=== PATIENT | female | born 1995 | race Caucasian/White ===

== ENCOUNTER 2020-05-20 12:05 | Emergency (ER) | payer SELFPAY ==
[~2020-05-20] VITALS: Ht 172.7 cm; Wt 52.3 kg
[2020-05-20 13:30] LABS: BASO % 1 % (0-3); EOS % 0 % (0-3); HEMATOCRIT 33.4 % (36.0-47.0); HEMOGLOBIN 10.8 g/dL (12.0-15.5); LYMPH # 1.1 x10^3/uL (1.0-4.8); LYMPH % 25 % (24-48); MEAN CORPUSCULAR HEMOGLOBIN 23 pg (25-35); MEAN CORPUSCULAR HGB CONC 32 g/dL (31-37); MEAN CORPUSCULAR VOLUME 71 fL (79-100); MONO # 0.5 x10^3/uL (0.0-1.1); MONO % 11 % (0-9); NEUT # 2.9 x10^3/uL (1.8-7.7); NEUT % 63 % (31-73); PLATELET COUNT 321 x10^3/uL (140-400); RED BLOOD COUNT 4.72 x10^6/uL (3.50-5.40); RED CELL DISTRIBUTION WIDTH 20.1 % (11.5-14.5); WHITE BLOOD COUNT 4.6 x10^3/uL (4.0-11.0)
[2020-05-20 13:34] LABS: CALCIUM 8.7 mg/dL (8.5-10.1); CREATININE 0.8 mg/dL (0.6-1.0); GFR 88.9; POTASSIUM 3.6 mmol/L (3.5-5.1)
--- NOTE | 2020-05-20 13:39 | PHYS DOC ---
Past Medical History Past Medical History: No Pertinent History, Unknown Past Surgical History: Other Additional Past Surgical Histo: Smoking Status: Current Every Day Smoker Alcohol Use: Occasionally General Adult EDM: Chief Complaint: LOWER EXT PAIN HPI: HPI: Patient is a 24 year old female presents with multiple complaints. Patient complains of some transient left-sided pleuritic chest pain that was mild yesterday and is currently gone. Patient had some shortness of breath of that that is now gone. Patient also complains of some left knee pain that is been there for a year and a half since accident pain is worse with walking and has some instability. Patient also complains of some swelling to the right inguinal area. Patient also states there is over rash on her bottom to the nurse but does not tell me about that and does not want me to look. Patient denies any fevers or cough. Patient has had a recent but denies other medical problems. Patient denies any vaginal discharge or vaginal rash Review of Systems: Review of Systems: Constitutional: Denies fever or chills. [] Eyes: Denies change in visual acuity. [] HENT: Denies nasal congestion or sore throat. [] Respiratory: Denies cough but had shortness of breath yesterday Cardiovascular: Had transient chest pain yesterday GI: Denies abdominal pain, nausea, vomiting, bloody stools or diarrhea. [] : Denies dysuria. [] Musculoskeletal: Complains of left knee pain Integument: Tells nurse of a rash on her rectal area but not to me Neurologic: Denies headache, focal weakness or sensory changes. [] Endocrine: Denies polyuria or polydipsia. [] Lymphatic: Denies swollen glands. [] Psychiatric: Denies depression or anxiety. [] Heart Score: HEART Score for Chest Pain: HEART Score for Chest Pain Response (Comments) Value History Slighlty/Non-Suspicious 0 ECG Normal 0 Age < 45 0 Risk Factors 1 or 2 Risk Factors 1 Troponin < Normal Limit 0 Total 1 Risk Factors: Risk Factors: DM, Current or recent (<one month) smoker, HTN, HLP, family history of CAD, obesity. Risk Scores: Score 0 - 3: 2.5% MACE over next 6 weeks - Discharge Home Score 4 - 6: 20.3% MACE over next 6 weeks - Admit for Clinical Observation Score 7 - 10: 72.7% MACE over next 6 weeks - Early Invasive Strategies Physical Exam: PE: Constitutional: Well developed, well nourished, no acute distress, non-toxic appearance. HENT: No trismus, external ears normal Eyes: Conjunctiva clear, EOMI Neck: Normal range of motion, no tenderness, supple, no stridor. Cardiovascular: Regular rate/rhythm, peripheral pulse intact, DETAIL SUPERVISOR intact Lungs & Thorax: No respiratory distress Abdomen: No distension, nontender nondistended no guarding no rebound Skin: Diffuse: Intact, no rash balloon tester present, right inguinal lymphadenopathy that is tender. Back: Full ROM Extremities: Normal inspection, no edema mild tenderness to palpate left knee with some mild ligament instability diffusely. No swelling Neurologic: Alert and oriented X 3, normal motor function, , no focal deficits noted. Psychologic: Affect normal, judgement normal, mood normal. Current Patient Data: Labs: Laboratory Tests Test 05/20/20 13:07 White Blood Count 4.6 x10^3/uL (4.0-11.0) Red Blood Count 4.72 x10^6/uL (3.50-5.40) Hemoglobin 10.8 g/dL (12.0-15.5) L Hematocrit 33.4 % (36.0-47.0) L Mean Corpuscular Volume 71 fL (79-100) L Mean Corpuscular Hemoglobin 23 pg (25-35) L Mean Corpuscular Hemoglobin Concent 32 g/dL (31-37) Red Cell Distribution Width 20.1 % (11.5-14.5) H Platelet Count 321 x10^3/uL (140-400) Neutrophils (%) (Auto) 63 % (31-73) Lymphocytes (%) (Auto) 25 % (24-48) Monocytes (%) (Auto) 11 % (0-9) H Eosinophils (%) (Auto) 0 % (0-3) Basophils (%) (Auto) 1 % (0-3) Neutrophils # (Auto) 2.9 x10^3/uL (1.8-7.7) Lymphocytes # (Auto) 1.1 x10^3/uL (1.0-4.8) Monocytes # (Auto) 0.5 x10^3/uL (0.0-1.1) Eosinophils # (Auto) 0.0 x10^3/uL (0.0-0.7) Basophils # (Auto) 0.0 x10^3/uL (0.0-0.2) Platelet Estimate Pending Laboratory Tests 05/20/20 13:07 Vital Signs: Vital Signs Date Time Temp Pulse Resp B/P (MAP) Pulse Ox O2 Delivery O2 Flow Rate FiO2 05/20/20 12:35 98.9 84 130/91 (104) 100 Room Air 98.9 EKG: EKG: EKG interpreted by me normal sinus rhythm with a rate of 78 she has a normal axis normal intervals T wave inversions V1 V2 [] Radiology/Procedures: Radiology/Procedures: [][place] [address] IMAGING REPORT Signed PATIENT: IRIS MURRIETAUNT: [id number] : 1995 LOCATION: ER AGE: 24 SEX: F EXAM STATUS: REG ER ORD. PHYSICIAN: BELTRAN JAIMES MD REASON: LEFT KNEE PAIN PROCEDURE: KNEE LEFT 3V KNEE LEFT 3V History: Reason: LEFT KNEE PAIN / Spl. Instructions: / History: Technique: 3 views left knee. Comparison: None. Findings: Normal alignment. No fracture. No significant knee joint effusion. Soft tissues unremarkable. Impression: 1. No acute osseous abnormality. Electronically signed by: Aniket Singleton DO (05/20/2020 1:56 PM) [facility] DICTATED and SIGNED BY: ANIKET SINGLETON DO DATE: 05/20/[address] [place], [place] [id number] IMAGING REPORT Signed PATIENT: IRIS MURRIETAUNT: [id number] : 1995 LOCATION: ER AGE: 24 SEX: F EXAM STATUS: REG ER ORD. PHYSICIAN: BELTRAN JAIMES MD REASON: LEFT KNEE PAIN PROCEDURE: KNEE LEFT 3V KNEE LEFT 3V History: Reason: LEFT KNEE PAIN / Spl. Instructions: / History: Technique: 3 views left knee. Comparison: None. Findings: Normal alignment. No fracture. No significant knee joint effusion. Soft tissues unremarkable. Impression: 1. No acute osseous abnormality. Electronically signed by: Aniket Singleton DO (05/20/2020 1:56 PM) [facility] DICTATED and SIGNED BY: ANIKET SINGLETON DO DATE: 05/20/20 [address] [facility] [address] [place] [address] IMAGING REPORT Signed PATIENT: IRIS MURRIETAUNT: [id number] : 1995 LOCATION: ER AGE: 24 SEX: F EXAM STATUS: REG ER ORD. PHYSICIAN: BELTRAN JAIMES MD REASON: CHEST PAIN PROCEDURE: CT ANGIOGRAPHY CHEST CT ANGIOGRAPHY CHEST History: Chest pain Technique: CT of the chest was performed with intravenous contrast. PE protocol. Maximum intensity projection coronal and sagittal reconstructions were performed. Exposure: One or more of the following individualized dose reduction techniques were utilized for this examination: 1. Automated exposure control 2. Adjustment of the mA and/or kV according to patient size 3. Use of iterative reconstruction technique. Comparison: None Findings: Chest: No pulmonary embolism. Mild respiratory degradation within the lower lobes. No pathologic lymphadenopathy. Residual thymus within the anterior mediastinum. No consolidation or pleural effusion. Mild mosaic attenuation bilaterally, most prominent within the left upper and right lower lobes. Upper abdomen: Enhancing lesion within the right posterior hepatic lobe measures 4 mm. Enhancing lesion within the left hepatic lobe measures 7 mm. Possible additional enhancing lesions, may relate to phase of contrast. Bones: No pathologic osseous lesions. Impression: 1. No acute thoracic pathology. No pulmonary embolism. 2. Mild mosaic attenuation most prominent within the left upper lobe, may relate to small airways disease or small vessel disease. 3. Potential small enhancing lesions within the liver, may relate to phase of contrast or vascular lesions such as hemangiomas. If persistent clinical concern, MRI with and without contrast can confirm. Electronically signed by: Aniket Singleton DO (05/20/2020 3:46 PM) [facility] DICTATED and SIGNED BY: ANIKET SINGLETON DO DATE: 05/20/20 2966 Course & Med Decision Making: Course & Med Decision Making Pertinent Labs and Imaging studies reviewed. (See chart for details) [] Reassessment at 16: 10 patient in bed in no acute distress Patient is a 24-year-old female with multiple complaints. As far as the left knee pain is concerned her x-ray is negative I think she probably has a ligamentous injury from an accident a week and half ago. Patient had some pleuritic chest pain and elevated d-dimer therefore she had a CT angiogram which was negative for pulmonary embolism. Patient is young and otherwise healthy I doubt acute coronary syndrome. Patient has an inguinal lymph node on the right that is enlarged and she says something is going on in her rectal region but would not let me look so I do not know what this is. It may be related. Patient denies anal intercourse and denies any vaginal discharge. I will place her on antibiotics in case it is a reactionary lymph node I discussed with her following up with a general surgeon if the lymph node persist for biopsy and rectal exam. Patient is otherwise stable for discharge and outpatient follow-up Dragon Disclaimer: Dragyusuf Disclaimer: This electronic medical record was generated, in whole or in part, using a voice recognition dictation system. Departure Departure Impression: Primary Impression: Chest pain Additional Impressions: Left knee pain Lymphadenopathy, inguinal Disposition: 01 HOME, SELF-CARE Condition: STABLE Referrals: NO PCP (PCP) BELTRAN CHOWDHURY MD 2-3 days Patient Instructions: Chest Pain (Nonspecific), Lymphangitis, Pediatric Additional Instructions: EMERGENCY DEPARTMENT GENERAL DISCHARGE INSTRUCTIONS THANK YOU for coming to [facility] Emergency Department (ED) today and trusting us with your care. We trust that you had a positive experience in our Emergency Department. If you wish to speak to the department Management you can contact the agriculture department chair at . YOUR FOLLOW UP INSTRUCTIONS ARE FOLLOWS: Do you have a private doctor? If you do not have a private doctor, please ask for a resource list of physicians or clinics that may be able to assist you with follow up care. The Emergency Physician has interpreted your x-rays. The X-ray specialist will also review them. If there is a change in the findings you will be notified in 48 hours when at all possible. A lab test or lab culture may have been done, your results will be reviewed and you will be notified if you need a change in treatment. ADDITIONAL INSTRUCTIONS AND INFORMATION Your care today has been supervised by a physician who is specially trained in emergency care. Many problems require more than one evaluation for a complete diagnosis and treatment. We recommend that you schedule your follow up appointment as recommended to ensure complete treatment of your illness or injury. If you are unable to obtain follow up care and continue to have a problem, or if your condition worsens we recommend that you return to the ED. We are not able to safely determine your condition over the phone nor are we able to give sound medical advice over the phone. For these safety reasons, if you call for medical advice we will ask you to come to the ED for further evaluation If you have any questions regarding these discharge instructions please call the ED at . SAFETY INFORMATION In the interest of safety, wellness, and injury prevention; we encourage you to wear your seatbelt, if you smoke; quit smoking, and we encourage your family to use protective helmet for bicycling and other sporting events that present an increased risk for head injury. IF YOUR SYMPTOMS WORSEN OR NEW SYMPTOMS DEVELOP, OR YOU HAVE CONCERNS ABOUT YOUR CONDITION; OR IF YOUR CONDITION WORSENS WHILE YOU ARE WAITING FOR YOUR FOLLOW UP APPOINTMENT; EITHER CONTACT YOUR PRIMARY CARE DOCTOR, THE PHYSICIAN WHOSE NAME AND NUMBER YOU WERE GIVEN, OR RETURN TO THE ED IMMEDIATELY. Scripts Doxycycline Monohydrate (DOXYCYCLINE MONOHYDRATE) 100 Mg Capsule 1 CAP PO BID, #20 CAP Prov: BELTRAN JAIMES MD 05/20/20 Justicifation of Admission Dx: Justifications for Admission: Justification of Admission Dx: N/A BELTRAN JAIMES MD May 20, 2020 13:39
[2020-05-20 13:41] LABS: ALBUMIN 3.5 g/dL (3.4-5.0); ALBUMIN/GLOBULIN RATIO 0.7 (1.0-1.7); PREG TEST PT QUAL NEGATIVE (NEG); TOTAL BILIRUBIN 0.5 mg/dL (0.2-1.0); TOTAL PROTEIN 8.2 g/dL (6.4-8.2)
--- NOTE | 2020-05-20 13:59 | RAD ---
KNEE LEFT 3V History: Reason: LEFT KNEE PAIN / Spl. Instructions: / History: Technique: 3 views left knee. Comparison: None. Findings: Normal alignment. No fracture. No significant knee joint effusion. Soft tissues unremarkable. Impression: 1. No acute osseous abnormality. Electronically signed by: Aniket Singleton DO (05/20/2020 1:56 PM) [facility]
--- NOTE | 2020-05-20 14:01 | RAD ---
PORTABLE CHEST 1V History: Reason: cp / Spl. Instructions: / History: Comparison: None. Findings: No consolidation or pleural effusion. Normal heart size. No pneumothorax. Impression: 1. No acute cardiopulmonary process. Electronically signed by: Aniket Singleton DO (05/20/2020 1:57 PM) [facility]
[2020-05-20 14:33] LABS: BILIRUBIN,URINE NEGATIVE (NEG); CLARITY,URINE CLEAR; COLOR,URINE YELLOW; NITRITE,URINE NEGATIVE (NEG); PH,URINE 6.5 (<5.0-8.0); PROTEIN,URINE NEGATIVE (NEG-TRACE); UROBILINOGEN,URINE 0.2 mg/dL (0.2 mg/dL)
[2020-05-20 14:42] LABS: SQUAMOUS EPITHELIAL CELL,UR MOD /LPF
[2020-05-20 14:43] LABS: BACTERIA,URINE FEW /HPF (0-FEW)
[2020-05-20] MEDS ORDERED: IOHEXOL 350 MG/ML 100 ML VIAL. IV ONE (14:45)
[2020-05-20] MEDS ORDERED: CONTRAST GIVEN. MC PRN (15:00)
--- NOTE | 2020-05-20 15:49 | RAD ---
CT ANGIOGRAPHY CHEST History: Chest pain Technique: CT of the chest was performed with intravenous contrast. PE protocol. Maximum intensity projection coronal and sagittal reconstructions were performed. Exposure: One or more of the following individualized dose reduction techniques were utilized for this examination: 1. Automated exposure control 2. Adjustment of the mA and/or kV according to patient size 3. Use of iterative reconstruction technique. Comparison: None Findings: Chest: No pulmonary embolism. Mild respiratory degradation within the lower lobes. No pathologic lymphadenopathy. Residual thymus within the anterior mediastinum. No consolidation or pleural effusion. Mild mosaic attenuation bilaterally, most prominent within the left upper and right lower lobes. Upper abdomen: Enhancing lesion within the right posterior hepatic lobe measures 4 mm. Enhancing lesion within the left hepatic lobe measures 7 mm. Possible additional enhancing lesions, may relate to phase of contrast. Bones: No pathologic osseous lesions. Impression: 1. No acute thoracic pathology. No pulmonary embolism. 2. Mild mosaic attenuation most prominent within the left upper lobe, may relate to small airways disease or small vessel disease. 3. Potential small enhancing lesions within the liver, may relate to phase of contrast or vascular lesions such as hemangiomas. If persistent clinical concern, MRI with and without contrast can confirm. Electronically signed by: Aniket Singleton DO (05/20/2020 3:46 PM) [facility] [place]
[2020-05-20 15:51] LABS: ANISOCYTOSIS MOD; HYPOCHROMIA MOD; MICROCYTOSIS MOD; PLT ESTIMATE ADEQUATE (ADEQUATE)
[2020-05-20] MEDS ORDERED: DOXY100C14 PO (16:15)
[2020-05-20 17:33] VITALS: BP 127/82
--- NOTE | 2020-05-20 17:56 | EKG ---
[facility] [address] [place] [address] Test Date: 2020-05-20 Test Time: 12:49:56 Pat Name: IRIS MURRIETA Department: Room: Gender: F Wood Caulker: : 1995 Requested By: BELTRAN JAIMES Order Number: [id number] Reading MD: Measurements Intervals [place] Rate: 78 P: 58 CT: 184 QRS: 77 QRSD: 72 T: 43 QT: 348 QTc: 400 Interpretive Statements SINUS RHYTHM QRS(T) CONTOUR ABNORMALITY CONSIDER ANTEROLATERAL MYOCARDIAL DAMAGE POSSIBLY ABNORMAL ECG RI6.01 No previous ECG available for comparison
== END 2020-05-20 17:35 | disposition home or self-care (01) ==
LOC: ER 12:05
DX: R07.89 Other chest pain (principal); M25.562 Pain in left knee; R59.0 Localized enlarged lymph nodes; R06.02 Shortness of breath; F17.200 Nicotine dependence, unspecified, uncomplicated; Z98.890 Other specified postprocedural states
CPT/HCPCS: 36415; 71045; 71275; 73562; 80053; 81001; 84484; 84703; 85025; 85379; 93005; 99285; Q9967